=== PATIENT | female | born 1985 | race Caucasian/White ===

== ENCOUNTER 2020-09-23 20:28 | Outpatient (REF) | payer OTHER, SELFPAY ==
[2020-09-23 21:30] LABS: Anion Gap 10.5 mmol/L (3-11); BUN 16 mg/dL (7-18); CO2 23.5 mmol/L (21.0-32.0); CREATININE 0.95 mg/dL (0.55-1.02); Calculated LDL 109 mg/dL (<100); Chloride 104 mmol/L (98-107); Cholesterol 207 mg/dL (<200); Glucose 98 mg/dL (74-106); HDL Cholesterol 82 mg/dL (40-60); Potassium 4.6 mmol/L (3.5-5.1); Sodium 138 mmol/L (136-145); Triglyceride 83 mg/dL (<150)
== END 2020-09-23 20:48 ==
LOC: NCHCN 20:28
PROVIDERS: Visit Provider Nurse Practitioner Family
DX: Z00.00 Encounter for general adult medical examination without abnormal findings (principal); Z13.220 Encounter for screening for lipoid disorders
CPT/HCPCS: 80048; 80061

== ENCOUNTER 2021-01-11 16:11 | Outpatient (REF) | payer OTHER, SELFPAY ==
[2021-01-13 09:50] LABS: HBs Antibody, Quant <3.1 mIU/mL (See Note); Hepatitis B Surface Ab Negative (See Note)
[2021-01-13 10:00] LABS: Measles IgG Antibody Positive (See Note); Mumps Antibody IgG Positive (See Note); Varicella IgG Antibody Positive (See Note)
[2021-01-13 10:07] LABS: Rubella IgG Ab (UVM) Positive (See Note)
== END 2021-01-11 16:12 | disposition home or self-care (01) ==
LOC: NCHCN 16:11
PROVIDERS: Visit Provider Nurse Practitioner Family
DX: Z11.59 Encounter for screening for other viral diseases (principal); Z01.84 Encounter for antibody response examination
CPT/HCPCS: 86706; 86765; 86787; 87340; 86735; 86762

== ENCOUNTER 2021-03-29 13:58 | Outpatient (REF) | payer OTHER, SELFPAY ==
--- NOTE | 2021-03-29 13:30 | PAPFT_PTH ---
PATIENT: Wanda Melgar LOC: NCN #:[id number] AGE/SX: 35/F ROOM: RE03/29/[address]: Melissa Lambert : 1985 BED: DIS: 03/29/2021 SPEC #: [id number] RECD: 03/29/21 18:40 STATUS: MELANIE REGinger #: [id number] KRIS: 03/29/21 13:[address]: Melissa Lambert DEPT: [facility] Cytology RECD BY: Yessi Watkins ENTERED: 03/29/21 18:41 SP TYPE: PAPFT LAVONNE DR: None Tissues: 1 - CX/ENDOCX FOR PAP SMEARS Procedures: PAP THIN PREP/[facility] Screening Comments: [id number]
== END 2021-03-29 13:59 | disposition home or self-care (01) ==
LOC: NCHCN 13:58
PROVIDERS: Visit Provider Nurse Practitioner Family
DX: Z00.00 Encounter for general adult medical examination without abnormal findings (principal); Z12.4 Encounter for screening for malignant neoplasm of cervix
CPT/HCPCS: 88142

== ENCOUNTER → 2025-09-09 02:25 | Outpatient (CLI) | payer OTHER, SELFPAY ==
--- NOTE | 2025-09-09 | DI.MRI_ITS ---
Exam(s) MR CERVICAL SPINE WO EXAM: MR CERVICAL SPINE WO CLINICAL HISTORY: CERVICAL DISC HERNIATION, M50.20, CERVICAL DISC DISPLACEMENT, F/U CT TECHNIQUE: Multiplanar multisequence MRI of the cervical spine was performed without intravenous contrast. COMPARISON: CT CT CERVICAL SPINE WO from 08/12/2025 FINDINGS: CERVICOMEDULLARY JUNCTION: Intact with no evidence of cerebellar tonsillar ectopia. No obvious abnormality of the odontoid process. No evidence of Chiari 1 malformation. CERVICAL SPINAL CORD: There is no abnormal signal in the cervical spinal cord and no evidence of focal cord atrophy nor focal cord swelling. OSSEOUS: There is straightening and mild reversal of the curvature of the cervical spine. There are no cervical fractures evident. No significant osseous lesions in the cervical vertebrae. INDIVIDUAL LEVELS: C2-3: No disc herniation nor central canal stenosis. No foraminal stenosis. No facet arthropathy. C3-4: No disc herniation nor central canal stenosis.No facet arthropathy. No foraminal stenosis. C4-5: Relatively preserved disc height. Posteriorly there is annular bulging which flattens the anterior aspect of thecal sac but not the spinal cord. The AP measurement of the canal at this level is 9 mm.Facet joints at this level appear unremarkable. There is no significant foraminal stenosis on either side. C5-6: There is moderate disc space narrowing at this level. There is a posterolateral left disc herniation at this level which extends posteriorly 3 mm and is approximately 6 mm wide. This significantly indents the left side of the thecal sac at this level. Central canal dimensions are lower normal. Facet joints at this level appear unremarkable. There small right-sided Luschka joint osteophytes at this level. Mild right-sided foraminal stenosis. Also mild left-sided foraminal stenosis. C6-7: This level exhibits mild disc space narrowing. There is asymmetric left- sided annular bulging the somewhat similar appearing posterolateral disc protrusion at this level extending posteriorly 2.5 mm and approximately 11 mm wide. This disc protrusion effaces the left side of the thecal sac at this level. Facet joints at this level appear unremarkable. There is moderate foraminal stenosis bilaterally this level. C7-T1: No disc herniation nor central canal stenosis. No facet arthropathy.No foraminal stenosis. T1-T2: Annular bulging and small disc protrusion noted on the sagittal images. This thoracic spine level was not covered on the axial images. There does appear to be some effacement of the anterior thecal sac on the sagittal images. IMPRESSION: 1. There is some degenerative disc disease at C4-5, C5-6, and C6-7 levels. 2. There are similar appearing posterolateral left disc protrusions as described above at both C5-6 and C6-7 levels. There is mild central canal stenosis at these levels. There is mild bilateral foraminal stenosis at C5-6 level and moderate bilateral foraminal stenosis at C 6-7 level. There is no abnormal signal in the cervical spinal cord and no evidence of focal cord swelling nor focal cord atrophy nor evidence of syringomyelia. 3. There is straightening and slight reversal of the normal cervical curvature. 4. Incidentally noted is a disc protrusion at T1-T2 level which is included in the sagittal sequences but not on the axial sequences. Therefore if clinically indicated follow-up thoracic spine MRI can be performed to determine if this is a significant disc herniation and if there are other thoracic level disc protrusions below this level. DATA REPOSITORY:
== END ==
PROVIDERS: PCP Nurse Practitioner Family; Visit Provider Nurse Practitioner Family
DX: M50.20 Other cervical disc displacement, unspecified cervical region (principal)
CPT/HCPCS: 72141